=== PATIENT | female | born 1940 | race Caucasian/White ===

== ENCOUNTER → 2021-03-12 11:23 | Outpatient (CLI) | payer OTHER, SELFPAY ==
[2021-03-12 19:24] LABS: Calcium 8.8 mg/dL (8.4-10.2)
[2021-03-14 06:36] LABS: Parathyroid Hormone Int 35 pg/mL (15-65)
[2021-03-14 08:47] LABS: Homocysteine 15.5 umol/L (0.0-19.2)
[2021-03-16 00:29] LABS: Methylmalonic Acid,Serum 171 nmol/L (0-378)
== END ==
PROVIDERS: PCP Internal Medicine Rheumatology; Visit Provider Internal Medicine Rheumatology
DX: E53.8 Deficiency of other specified B group vitamins (principal)
CPT/HCPCS: 82310; 83090; 83921; 83970; 86340

== ENCOUNTER → 2021-05-09 15:17 | Outpatient (CLI) | payer OTHER, SELFPAY ==
[2021-05-09 16:29] LABS: Add Manual Diff / Slide Review NO; Basophils Absolute Auto 100 /uL (0-100); Basophils Percent Auto 1.2 % (0-2); Eosinophils Absolute Auto 300 /uL (0-450); Eosinophils Percent Auto 5.2 % (2-4); Hematocrit 32.3 % (36-46); Hemoglobin 10.6 g/dL (12.0-16.0); Lymphocytes Absolute Auto 1200 /uL (1100-4500); Lymphocytes Percent Auto 23.1 % (25-40); Mean Corpuscular HGB Conc 32.7 % (30-36); Mean Corpuscular Hemoglobin 28.5 PG (26-34); Mean Corpuscular Volume 87.1 fL (80-100); Monocytes Absolute Auto 700 /uL (0-900); Monocytes Percent Auto 13.4 % (3-14); Neutrophils Absolute Auto 3000 /uL (1500-7000); Neutrophils Percent Auto 57.1 % (50-75); Platelet Count 196 X10^3/uL (150-400); Red Blood Cell Count 3.71 X10^6/uL (4.0-5.2); Red Cell Distribution Width 16.7 % (11.6-14.8); White Blood Cell Count 5.3 X10^3/uL (4.5-11.0)
[2021-05-09 16:44] LABS: C-Reactive Protein Quant 0.6 mg/dL (<1.0)
[2021-05-09 17:06] LABS: Erythrocyte Sedimentation Rate 44 MM/HR (0-20)
== END ==
PROVIDERS: PCP Internal Medicine Rheumatology; Referring Provider Physician Assistant Medical; Visit Provider Physician Assistant Medical
DX: M25.562 Pain in left knee (principal)
CPT/HCPCS: 36415; 85025; 85651; 86140

== ENCOUNTER → 2021-06-06 10:15 | Outpatient (CLI) | payer OTHER, SELFPAY ==
--- NOTE | 2021-06-06 | DI.NM.S_ITS ---
PROCEDURE: NM BONE SCAN WHOLE BODY RADIOPHARMACEUTICAL: 21.5 mCi Tc-99m MDP IV. INDICATIONS: Pain due to internal orthopedic prosthetic devices TECHNIQUE: Delayed whole-body scintigrams were obtained approximately 3-4 hours after intravenous injection of radiotracer. Anterior and posterior views were acquired from vertex to feet. COMPARISON: [facility] [place], CR, XR KNEE 4+ VIEWS LEFT, 05/09/2021, 11:59. FINDINGS: There is left knee arthroplasty. Low-level increased uptake around prosthesis is most likely postsurgical change. Increased activity in the right knee is compatible with degenerative joint disease. There is scoliosis. Increased activity in the lumbar spine is present, compatible with degenerative changes and possibly postsurgical changes. Lesser degree of increased uptake in the lower cervical spine thoracic spine is likely degenerative in nature. Increased activity is also seen in the sacroiliac joints bilaterally. No lesions are identified in skull, sternum, clavicles, scapulae, ribs, bony pelvis, and visualized shafts of the long bones. There are foci of increased periarticular activity involving shoulders, sternoclavicular joints, elbows, wrists, hands, hips, right ankle and both feet, compatible with degenerative/arthritic changes. IMPRESSION: 1. Left knee arthroplasty. Low-level increased uptake around knee prosthesis is most likely secondary to postsurgical change. No definitive scintigraphic findings to suggest prosthesis loosening or infection. 2. Scoliosis and degenerative changes in spine. More intense uptake in the lumbar spine could be due to postsurgical changes. Recommend clinical and radiographic correlation. 3. 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 Dictated by: Africa Alberto M.D. on 06/06/2021 at 17:22 Approved by: Africa Alberto M.D. on 06/07/2021 at 10:44
== END ==
PROVIDERS: PCP Family Medicine; Referring Provider Physician Assistant Medical; Visit Provider Physician Assistant Medical
DX: T84.84XA Pain due to internal orthopedic prosthetic devices, implants and grafts, initial encounter (principal); M47.816 Spondylosis without myelopathy or radiculopathy, lumbar region; M41.9 Scoliosis, unspecified
CPT/HCPCS: 78306; A9503